=== PATIENT | female | born 1960 | race American Indian/Alaskan Native ===

== ENCOUNTER 2021-07-09 05:06 | Emergency (ER) | payer SELFPAY ==
--- NOTE | 2021-07-09 11:32 | Emergency Department Report ---
ED Female HPI - General Chief complaint: Vaginal Bleeding Stated complaint: VAGINAL BLEEDING,FOOT PAIN, Time Seen by Provider: 07/09/21 11:01 Source: patient Mode of arrival: Ambulatory Limitations: No Limitations - History of Present Illness Initial comments: 61 yo F who present with painless vaginal bleeding that started about 2 weeks ago and progressively getting worse. [facility] is [facility] and was treated once for same symptoms with antibiotics and pain medication with improvement within 5 days. Patient denies any fever or chills. Patient reports reaching menopause at age 48. No recent sexual intercourse reported. Patient also mention left dorsal foot pain that started about 2 days ago and disturbing her from sleep. No trauma or fall reported. She denies any recent long distance flight or travel. No SOB or CP or Palpitation reported. Pt however was diagnosed with both hypertension and diabetes about 2 weeks ago and was started on losartan and metformin. She denies any other modifying or associated factors reported. - Related Data Previous Rx's Medication Instructions Recorded Last Taken Type Cyclobenzaprine HCl [Flexeril 5 MG 5 mg PO TID 5 Days #15 tab NS 07/09/21 Unknown Rx TAB] traMADoL [Ultram] 50 mg PO Q6HR PRN 3 Days #12 07/09/21 Unknown Rx tablet NS Allergies Allergy/AdvReac Type Severity Reaction Status Date / Time aspirin Allergy Unknown Verified 07/09/21 05:12 ED Review of Systems ROS: Stated complaint: VAGINAL BLEEDING,FOOT PAIN, Other details as noted in HPI Comment: All other systems reviewed and negative Genitourinary: other (viganal bleeding ) Musculoskeletal: joint swelling, arthralgia (right dorsal foot swelling with pain ) ED Past Medical Hx - Medications Home Medications: Home Medications Medication Instructions Recorded Confirmed Last Taken Type Cyclobenzaprine HCl [Flexeril 5 MG 5 mg PO TID 5 Days #15 tab NS 07/09/21 Unknown Rx TAB] traMADoL [Ultram] 50 mg PO Q6HR PRN 3 Days #12 07/09/21 Unknown Rx tablet NS ED Physical Exam - General Limitations: No Limitations General appearance: alert, in no apparent distress - Head Head exam: Present: normal inspection - Eye Eye exam: Present: normal appearance Pupils: Present: normal accommodation - ENT ENT exam: Present: normal exam, normal orophraynx, TM's normal bilaterally - Neck Neck exam: Present: normal inspection, full ROM. Absent: tenderness, meningism us - Respiratory Respiratory exam: Present: normal lung sounds bilaterally, respiratory distress. Absent: accessory muscle use - Cardiovascular Cardiovascular Exam: Present: regular rate, normal rhythm, normal heart sounds - GI/Abdominal GI/Abdominal exam: Present: soft, normal bowel sounds. Absent: distended, tenderness - Extremities Exam Extremities exam: Present: normal inspection, full ROM, tenderness (right dorsal foot with appreciable dorsalis pedis) - Back Exam Back exam: Present: normal inspection, full ROM. Absent: tenderness, CVA tenderness (R), CVA tenderness (L) - Neurological Exam Neurological exam: Present: alert, oriented X3 - Psychiatric Psychiatric exam: Present: normal affect, normal mood - Skin Skin exam: Present: warm, intact, normal color ED Course Vital Signs 07/09/21 05:08 Temperature 97.9 F Pulse Rate 95 H Respiratory 16 Rate Blood Pressure 149/80 [Right] O2 Sat by Pulse 97 Oximetry - Reevaluation(s) Reevaluation #1: 07/09/21 11:34 with non painful vaginal bleeding-- worrisome in a menopausal woman so will go ahead and order INR, PTT, with routine labs including D-dimer to rule out DVT, and CBC, with CMP and UA for any infectious process or electrolyte abnormality-- Bottle Inspector will be consulted as well-- Reevaluation #2: 07/09/21 11:43 I called and consulted with Dr. Park MILL REPRESENTATIVE who agreed with my concern and suggested transfer vaginal ultrasound for further evaluation. She also mentioned that the patient will need to follow-up with her for likely endometrial biopsy for differential and further evaluation and treatment. Work- up lab is pending at this point. Reevaluation #3: 07/09/21 13:54 Noted with elevated D-dimer which brought concern for DVT so we will go ahead a nd get a Doppler of the right lower leg to rule out DVT. 07/09/21 13:57 Transvaginal US resulted abnormal masslike in the endometrial complexe. Will call and update Dr Park. Will continue to monitor the doppler US of the right foot. 07/09/21 14:02 Dr. Putnam updated and she agreed to have patient follow-up with her on the outpatient. I will update patient. Reevaluation #4: 07/09/21 14:41 US doppler of the right foot/leg noted to be unremarkable for DVT-- considering that patient reports this as pin and needle discomfort-- will go ahead and d/d home to close follow with Dr Park. ED Medical Decision Making - Lab Data Result diagrams: 07/09/21 11:59 07/09/21 11:59 Critical care attestation.: If time is entered above; I have spent that time in minutes in the direct care of this critically ill patient, excluding procedure time. ED Disposition Clinical Impression: Vaginal bleeding, Foot pain, right, Swelling of right foot, DUB (dysfunctional uterine bleeding), Endometrial mass Disposition: 01 HOME / SELF CARE / HOMELESS Is pt being admited?: No Does the pt Need Aspirin: No Condition: Stable Instructions: How to Use Cold Therapy, [id number], Abnormal Uterine Bleeding, [id number], Dysfunctional Uterine Bleeding Additional Instructions: Please call Dr [facility] at [phone] and schedule a follow up for further evaluation and treatment of your bleeding Please do not hesitate to call or return to ED if your symptoms worsen Prescriptions: Cyclobenzaprine HCl [Flexeril 5 MG TAB] 5 mg PO TID 5 Days #15 tab NS traMADoL [Ultram] 50 mg PO Q6HR PRN 3 Days #12 tablet NS PRN Reason: Pain Referrals: JASMIN WELLER MD [Primary Care Provider] - 3-5 Days MARIBETH PARK MD [Staff Physician] - 3-5 Days Time of Disposition: 14:46
[2021-07-09 12:23] LABS: Basophils # (Auto) 0.1 K/mm3 (0.0-0.1); Basophils % (Auto) 0.8 % (0.0-1.8); Eosinophils # (Auto) 0.6 K/mm3 (0.0-0.4); Eosinophils % (Auto) 7.2 % (0.0-4.3); Hematocrit 40.4 % (30.3-42.9); Hemoglobin 13.2 gm/dl (10.1-14.3); Lymphocytes # (Auto) 2.4 K/mm3 (1.2-5.4); Lymphocytes % (Auto) 30.1 % (13.4-35.0); Mean Corpuscular HGB Conc 33 % (30-34); Mean Corpuscular Volume 81 fl (79-97); Monocytes # (Auto) 0.9 K/mm3 (0.0-0.8); Monocytes % (Auto) 11.5 % (0.0-7.3); Platelet Count 327 K/mm3 (140-440); Red Blood Count 5.01 M/mm3 (3.65-5.03); Red Cell Distribution Width 13.6 % (13.2-15.2)
[2021-07-09 12:34] LABS: Alanine Aminotransferase 12 units/L (7-56); Blood Urea Nitrogen 17 mg/dL (7-17); Calcium 9.2 mg/dL (8.4-10.2); Hemolysis Index 7
[2021-07-09 12:35] LABS: INR 0.92 (0.87-1.13)
[2021-07-09 12:36] LABS: Partial Thromboplastin Time 27.4 Sec. (24.2-36.6)
--- NOTE | 2021-07-09 12:36 | Ultrasound Report ---
ULTRASOUND PELVIS INDICATION / CLINICAL INFORMATION: painless vaginal bleeding. TECHNIQUE: Transvaginal. Duplex Color Doppler used: Yes. COMPARISON: None available FINDINGS: UTERUS: Uterus measures 9.3 x 4.1 x 5.1 cm. Abnormal masslike thickening of the endometrial complex, measuring 2.9 cm in thickness. RIGHT ADNEXA: No significant ovarian cyst or mass. Normal color Doppler blood flow. LEFT ADNEXA: Left ovary is not visualized. URINARY BLADDER: No significant abnormality. FREE FLUID: None. ADDITIONAL FINDINGS: None. IMPRESSION: 1. Abnormal masslike thickening of the endometrial complex. This could reflect a submucosal fibroid, though endometrial hyperplasia/malignancy cannot be excluded. Gynecologic consultation is recommended . 2. Nonvisualization of the left ovary. Right ovary appears unremarkable. Signer Name: Luis Manuel Puga MD Signed: 07/09/2021 12:26 PM Workstation Name: [id number]
[2021-07-09 13:09] LABS: BUN/Creatinine Ratio 28
--- NOTE | 2021-07-09 14:35 | Vascular Lab Report ---
DUPLEX DOPPLER LOWER EXTREMITY VEINS, RIGHT INDICATION: pain. TECHNIQUE: Duplex doppler imaging was performed through the veins of the right lower extremity using venous compression and other maneuvers. COMPARISON: No relevant prior imaging study available. FINDINGS: Right Common femoral vein: Negative. Right Superficial femoral vein: Negative. Right Popliteal vein: Negative. Right Calf veins: Negative. Additional findings: None. IMPRESSION: No sonographic evidence for DVT in the right lower extremity. Signer Name: Lawrence Rowe Jr, MD Signed: 07/09/2021 2:31 PM Workstation Name: [id number]
[2021-07-09 15:16] VITALS: BP 141/85
== END 2021-07-09 15:14 | disposition home or self-care (01) ==
LOC: ED 05:06
DX: N93.9 Abnormal uterine and vaginal bleeding, unspecified (principal); M79.671 Pain in right foot; R22.41 Localized swelling, mass and lump, right lower limb; N93.8 Other specified abnormal uterine and vaginal bleeding
CPT/HCPCS: 36415; 76830; 80053; 84443; 85025; 85379; 85610; 85730; 99284